=== PATIENT | male | born 1990 | race Caucasian/White ===

== ENCOUNTER 2025-03-22 22:38 | Emergency (ER) | payer SELFPAY ==
[2025-03-22 22:43] VITALS: BP 170/94; PULSE 95; RESP 18; O2SAT 100
[2025-03-22 22:48] VITALS: BP 170/94; PULSE 95; RESP 18; O2SAT 100
--- NOTE | 2025-03-22 22:58 | W.ED.GENAD ---
Discharge Plan Disposition Patient Disposition: Home Condition: Stable Discharge Details Clinical Impression: Nausea vomiting and diarrhea, Hypomagnesemia ED Provider: Jeanine Sarmiento Home Meds and New Rx's Prescriptions: No Action No Known Home Meds Discharge Instructions Instructions: Nausea and Vomiting, Adult ED Additional Instructions: You were seen in the emergency department today for evaluation of nausea with vomiting and diarrhea, as well as some dehydration and low magnesium. In our department you had a full physical examination performed, received fluids to rehydrate you, and had laboratory studies that were largely reassuring, though you did have some changes associated with your dehydration, including a low magnesium and a slightly elevated bilirubin. You had no evidence of pancreatitis or other emergent cause of your nausea and vomiting, and I am most suspicious for an infectious cause, commonly known as gastroenteritis. Please maintain good hydration, and I have provided you with a short course of nausea medications to take to maintain your hydration. Please follow-up with your primary care provider in the next few days to discuss this visit and any symptoms that change, worsen, or persist. Thank you for allowing us to be part of your care. Stand Alone Forms: Work Release HPI General Mode of arrival: ambulatory. Date/Time Provider Initiated Documentation: 03/22/25 22:50. Limitations to Documentation: no limitations. Information obtained by: patient, family and old records reviewed. HPI Narrative: This is a 34-year-old male patient without significant past medical history presenting for evaluation of nausea, vomiting, diarrhea, and a concern for dehydration. 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 He reports that he did drink water during work, had 3-4 beers while at the beach, and at 730 became acutely unwell, with nausea, vomiting, and diarrhea, reported as not frankly bloody. States that nobody else in his home has been sick with similar symptoms, he has not had any recent hospitalizations, antibiotic use, or exposure to sanitize water sources. States that he feels muscle cramps, and has not urinated for several hours. Related Data Home Medications ?Medication ?Instructions ?Recorded ?Confirmed Unknown [No Known Home Meds] 03/22/25 03/22/25 Allergies Allergy/AdvReac Type Severity Reaction Status Date / Time No Known Allergies Allergy Verified 03/22/25 22:52 General Stated Complaint: Nausea/Vomit/Diar MARBELLA: 3 Exam Narrative Exam Narrative: Gen: Awake and alert, appears uncomfortable HEENT: Non-icteric sclera Neck: Supple Lungs: No apparent respiratory distress, normal respiratory effort. Lung sounds clear and equal bilaterally, no wheezes, rhonchi, rales CV: Appears well perfused, heart with regular rate and rhythm, strong distal pulses Abdomen: Non-distended, soft, minimal tenderness to palpation with no rigidity, rebound, or guarding MSK: Moves 4 extremities without apparent limitation in ROM Skin: Visualized skin without rashes, cyanosis. Neuro: Normal Gait, no obvious focal deficits or facial asymmetry. Speaks in full, clear sentences. Psych: Appropriate for situation. Course Vital Signs Vital signs: Vital Signs Pulse 95 H 03/22/25 22:43 Respiratory Rate 18 03/22/25 22:43 Blood Pressure 170/94 H 03/22/25 22:43 Pulse Oximetry 100 03/22/25 22:43 Temperature Source Oral 03/22/25 22:48 Pulse 95 H 03/22/25 22:48 Respiratory Rate 18 03/22/25 22:48 Blood Pressure 170/94 H 03/22/25 22:48 Blood Pressure Position Supine 03/22/25 22:48 Pulse Oximetry 100 03/22/25 22:48 Oxygen Delivery Method Room Air 03/22/25 22:48 Oxygen Flow Rate 0 03/22/25 22:43 Pain Level 4 03/22/25 22:48 Medical Decision Making This is a 34-year-old male patient presenting for evaluation of muscle cramping, nausea, vomiting and diarrhea. My differential includes but is not limited to gastroenteritis, gastritis, pancreatitis, hepatitis, cholecystitis. Exam less concerning for appendicitis or diverticulitis, certainly considered metabolic and electrolyte derangements, dehydration, rhabdomyolysis, infectious diarrhea. The patient is not at high risk for C. difficile, nor does he have bloody stools or risk factors for severe infectious diarrhea such as Shigella, E. coli, etc. I am reassured by the patient's hemodynamic stability, we will obtain an IV and provide the patient with a liter of IV fluids and Zofran for nausea management. I will obtain laboratory studies to include CBC, CMP, magnesium, and lipase. I will also obtain a CK and urinalysis. The patient's family friends note that he has had multiple tick exposures today, and a tick and Lyme panel will also be sent. - I reviewed the patient's laboratory studies, which show a mild leukocytosis to 13.8, no anemia or thrombocytopenia. Chemistry panel is without significant electrolyte derangements other than a magnesium of 1.5, which was repleted intravenously. He has a slightly elevated BUN to 23 with a normal creatinine, concerning for dehydration given the ratio greater than 20-1. Bilirubin slightly elevated at 1.8, no prior labs to compare to, and no associated transaminitis. Lipase is low, urine noninfectious. After fluids and magnesium, the patient was able to tolerate oral intake and had significant improvement in symptoms. I did provide him with a take-home course of Zofran to help maintain hydration. Given the brief duration of symptoms I do not see an indication to initiate antibiosis. At this time, the patient has had a full medical evaluation and is safe for discharge to home. They are hemodynamically stable, ambulatory, and tolerating PO. They are understanding of the follow-up plan and return precautions. They left our facility without incident. Jeanine Sarmiento MD Quality:[facility] Health Related Social Needs: No Data to Display [facility] All Active Problems (Updated 03/23/25 @ 01:29 by Jeanine Sarmiento MD) Hypomagnesemia (Acute) Nausea vomiting and diarrhea (Acute) Social History Smoking/Tobacco Use Status: Never Smoking risk assessment performed?: Yes Alcohol Intake: current Alcohol Intake frequency: 3 or more drinks per day Alcohol type: beer Drug use: Daily Substance use type: marijuana Housing: apartment Do you feel safe at home: Yes Do you feel safe in your relationship?: Yes PAWSS Have you Been Recently Intoxicated or Drunk Within the Last 30 days?: No Have you Ever Experienced Previous Episodes of Alcohol Withdrawal?: No Have you ever Experienced Withdrawal Seizures?: No Have you ever Experienced Delirium Tremens(DT)s?: No Have you ever undergone Alcohol Rehabilitation Treatment (i.e, inpt ot outpatient treatment programs)?: No Have you ever Experienced Blackouts?: No Have you ever Combined Alcohol with other Downers within the last 90 days?: No Have you ever Combined Alcohol with any other Substance of Abuse during the last 90 days?: No Positive Blood Alcohol level on Presentation? [PCS.BAL]: No Evidence of Increased Autonomic Activity (i.e. HR>120, tremor, sweating, agitation, nausea)?: No Result: 0
[2025-03-22 23:18] LABS: Abs Immature Grans 0.04 10^3/uL (0.0-0.06); Absolute Basophil Count 0.06 10^3/uL (0.0-0.2); Absolute Eosinophil Count 0.06 10^3/uL (0.0-0.7); Absolute Lymphocyte Count 0.62 10^3/uL (1.2-3.4); Absolute Monocyte Count 0.61 10^3/uL (0.1-0.8); Absolute Neutrophil Count 12.49 10^3/uL (1.2-6.7); Basophils % 0.4 %; Eosinophils % 0.4 %; HCT 51.1 % (40.0-50.0); HGB 16.9 g/dL (13.5-17.5); Immature Grans % 0.3 %; Lymphocytes % 4.5 %; MCH 31.6 pg (27.0-33.0); MCHC 33.1 % (32.0-36.0); MCV 96 fL (80-95); MPV 10.2 fL (8.0-11.0); Monocytes % 4.4 %; Platelet Count 261 10^3/uL (130-400); RBC 5.35 10^6/uL (4.36-5.78); RDW 12.2 % (11.8-14.1); RDW-SD 43.1 fL; WBC 13.88 10^3/uL (4.4-10.8)
[2025-03-22] MEDS: Ondansetron 4 MG/2 ML VIAL IVP (23:20)
[2025-03-22] MEDS: Lactated Ringers 1,000 ML 1000 ML IV (23:20)
[2025-03-22 23:34] LABS: ALT 27 U/L (16-63); AST 23 U/L (15-37); Albumin 5.1 g/dL (3.4-5.0); Alkaline Phosphatase 77 U/L (46-116); Anion Gap 12.4 mmol/L (3-11); BUN 23 mg/dL (7-18); Bilirubin, Total 1.8 mg/dL (0.2-1.0); CO2 29.6 mmol/L (21.0-32.0); Calcium 10.2 mg/dL (8.5-10.1); Chloride 99 mmol/L (98-107); Creatine Kinase 39 U/L (39-308); Estimated GFR 102.55 (mL/min/1.73m2); Glucose 143 mg/dL (74-106); Magnesium 1.5 mg/dL (1.8-2.4); Potassium 3.7 mmol/L (3.5-5.1); Sodium 141 mmol/L (136-145); Total Protein 9.3 g/dL (6.4-8.2)
[2025-03-22 23:47] LABS: Lipase 32 U/L (<78)
[2025-03-23] MEDS: MAGNESIUM SULFATE 2 GM/50 ML BAG IV_INF (00:16)
[2025-03-23] MEDS: Lactated Ringers 1,000 ML 1000 ML IV (00:34)
[2025-03-23 00:35] LABS: Bilirubin Negative (Negative); Blood Negative (Negative); Clarity Clear (Clear); Glucose Negative (Negative); Ketones Trace mg/dL (Negative); Leukocyte Esterase Negative (Negative); Nitrite Negative (Negative); Specific Gravity >= 1.030 (1.005-1.025); Urobilinogen 0.2 mg/dL (Up to 0.2); pH 5.5 (5-8)
[2025-03-23 00:39] LABS: Bacteria Rare HPF (Negative); C & S Indicated? No; Casts Negative LPF (Negative); Crystals Negative HPF (Negative); Epithelial Cells Rare HPF (Negative); Mucus Trace (Negative); RBC 0-2 HPF (0-2); WBC Negative HPF (0-5)
[2025-03-23] MEDS: Ondansetron O.D.T. 4 MG TABEF, 3 TABS/BTL PO (01:35)
[2025-03-23 01:41] VITALS: BP 151/94; PULSE 89; RESP 16; O2SAT 99
[2025-03-26 12:14] LABS: Lyme Ab w Rflx to Lyme Confirm Negative (Negative)
[2025-03-26 15:44] LABS: Anaplasma phagocytophilum Negative (Negative); B. miyamotoi PCR Negative (Negative); Babesia divergens/MO-1 Negative (Negative); Babesia duncani Negative (Negative); Babesia microti Negative (Negative); Ehrlichia chaffeensis Negative (Negative); Ehrlichia ewingii/canis Negative (Negative); Ehrlichia muris eauclairensis Negative (Negative)
== END 2025-03-23 01:43 | disposition home or self-care (01) ==
LOC: ER 03-23 01:52
PROVIDERS: Emergency Provider Emergency Medicine
DX: R11.2 Nausea with vomiting, unspecified (principal); R19.7 Diarrhea, unspecified; E83.42 Hypomagnesemia
CPT/HCPCS: 36415; 80053; 82550; 83690; 87798; 96361; 96365; 96375; 99284; 81003; 81015; 83735; 85025; 86618; J2405; J3475